=== PATIENT | male | born 1975 | race Caucasian/White ===

== ENCOUNTER 2018-05-24 14:35 | Emergency (ER) | payer SELFPAY ==
[2018-05-24 15:02] VITALS: BP 124/74
--- NOTE | 2018-05-24 15:15 | UC ---
Lower Extremity/Ankle HPI - HPI Summary HPI Summary: Patient states he stepped through a grate and right ankle was caught in it as he fell backward with knee bent, right elbow was cut while trying to break the fall. He could ambulate after the fall but states he feels right knee clicking and he is in a lot of pain right now. He took 3 naproxen soon after the accident occurred. Patient had previous ORIF of right ankle. States las tetanus vaccine was in 2010 when he had this surgery - History of Current Complaint Chief Complaint: UCGeneralIllness Stated Complaint: RIGHT LEG INJURY Time Seen by Provider: 05/24/18 15:05 Hx Obtained From: Patient Onset/Duration: Sudden Onset, Lasting Minutes Severity Initially: Moderate Severity Currently: Severe Pain Intensity: 7 Aggravating Factor(s): Standing, Ambulation Alleviating Factor(s): Rest, Elevation, OTC Meds - Risk Factors Gout Risk Factors: Age Over 40, Male DVT Risk Factors: Negative Septic Arthritis Risk Factor: Negative - Allergies/Home Medications Allergies/Adverse Reactions: Allergies Allergy/AdvReac Type Severity Reaction Status Date / Time codeine Allergy Hallucinati Verified 05/24/18 14:54 ons Home Medications: Home Medications Naproxen Sodium [Aleve] 660 mg PO ONCE PRN 05/24/18 [History Confirmed 05/24/18] PMH/Surg Hx/FS Hx/Imm Hx Previously Healthy: Yes - Surgical History Surgical History: Yes Surgery Procedure, Year, and Place: right ankle sx--hardware placement. right elbow rebuilt - Family History Known Family History: Positive: Cardiac Disease - Social History Alcohol Use: Occasionally Substance Use Type: None Smoking Status (MU): Current Every Day Smoker Type: Cigarettes Length of Time of Smoking/Using Tobacco: 1 ppd Have You Smoked in the Last Year: Yes When Did the Patient Quit Smoking/Using Tobacco: 25 yrs Review of Systems Constitutional: Negative Musculoskeletal: Arthralgia, Myalgia All Other Systems Reviewed And Are Negative: Yes Physical Exam Triage Information Reviewed: Yes Appearance: Pain Distress, Obese Vital Signs: Initial Vital Signs Temp 98.2 F 05/24/18 14:55 Pulse 86 05/24/18 14:55 Resp 16 05/24/18 14:55 BP 124/74 05/24/18 14:55 Pulse Ox 99 05/24/18 14:55 Vital Signs Reviewed: Yes Eyes: Positive: Conjunctiva Clear ENT: Positive: Hearing grossly normal Neck: Positive: Supple, Nontender Respiratory: Positive: Chest non-tender Cardiovascular: Positive: Pulses Normal, Brisk Capillary Refill Abdomen Description: Positive: Nontender Musculoskeletal: Positive: Other: - Right knee: Small suprapatellar right knee effusion, varus and valgus test negative, no anamika/posterior displacement of knee, no popliteal mass, patella is mobile and non tender. No bruising or skin lesion. Right ankle: surgical scars noted, tenderness on posterior aspect of lateral and medial malleolus. No tenderness along navicular area or fifth metatarsal area, mild soft tissue swelling surrounding ankle, pedal pulses present, capillary refill is brisk. He is able to bear weight. UE FROM, no edema or deformity Neurological: Positive: Alert, Muscle Tone Normal Skin Exam: Other - linear laceration on right forearm 0.8cm in length, no active bleeding, no discharge, non tender on surrounding soft tissue Lower Extremity Course/Dx - Course Course Of Treatment: xray of right knee and ankle were normal, laceration of right elbow was cleansed and dermabond applied with steristrips. Patient tolerated procedure well, continue naproxen , RICE and elevation. ELISABET bandage applied . - Differential Dx/Diagnosis Provider Diagnoses: laceration of right elbow. Knee sprain. Ankle sprain Discharge - Sign-Out/Discharge Documenting (check all that apply): Patient Departure All imaging exams completed and their final reports reviewed: Yes - Discharge Plan Condition: Stable Disposition: HOME Patient Education Materials: Ankle Sprain (ED), Laceration (DC), Knee Sprain ( ED), Naproxen (By mouth), Skin Adhesive Care (ED) Referrals: No Primary Care Phys,NOPCP [Primary Care Provider] - [facility] [place] [facility] [Outside] - Billing Disposition and Condition Condition: STABLE Disposition: Home Images Front/Back of Body, Lg ([place]): 1 - linear superficial laceration 0.8cm in length
--- NOTE | 2018-05-24 16:22 | RAD ---
INDICATION: Right knee pain since a fall COMPARISON: None TECHNIQUE: 4 view radiograph of the right knee. FINDINGS: The visualized bones are well-corticated and properly aligned. The joint spaces are properly maintained. There is no radiographic evidence of joint effusion. There is no acute fracture, dislocation or other focal bony abnormality. IMPRESSION: Normal knee radiograph as described above. If the patient's symptoms persist, follow-up imaging is recommended.
--- NOTE | 2018-05-24 16:23 | RAD ---
INDICATION: Right ankle pain after a fall. Relevant surgical history includes right ankle ORIF. COMPARISON: None. TECHNIQUE: 3 views of the right ankle were obtained. FINDINGS: There are plate and screw fixator spanning the distal right tibia and fibula. The hardware appears to be intact. The visualized bones are intact and appropriately aligned. The ankle more T's is not asymmetrically widened. IMPRESSION: NO RADIOGRAPHICALLY APPARENT ACUTE FRACTURE OR DISLOCATION IN A PATIENT STATUS POST DISTAL RIGHT TIB-FIB ORIF. If the patient's symptoms persist, follow-up imaging is recommended.
== END 2018-05-24 17:07 | disposition home or self-care (01) ==
LOC: UCCORT 14:35
CPT/HCPCS: 99202; G0463